=== PATIENT | male | born 1985 | race Hispanic/Latino ===

== ENCOUNTER 2024-12-02 22:09 | Emergency (ER) | payer MEDICAID ==
[~2024-12-02] VITALS: Ht 170.2 cm; Wt 85.3 kg
--- NOTE | 2024-12-03 01:24 | ERN ---
ED Note History of Present Illness Stated Complaint: COVID POSITIVE Chief Complaint: Cough Time Seen by MD: 22:30 Time Seen by Midlevel: 22:30 Dictation: The patient is a 39-year-old male with history of diabetes, hypertension, HIV who presents to the emergency department with complaints of cough, chills, body aches. Patient reports that he did a home test for COVID and was positive. Allergies: Coded Allergies: No Known Allergies (Unverified Allergy, Unknown, 12/02/24) Past Medical History Past Medical History: Diabetes-Type II, HIV, Hypertension Surgical History: None RN Note Reviewed/Agreed w/PFSH: Yes Review of System Dictation Constitutional: Negative for and weight loss positive for fever, chills Eyes: Negative for injury, pain,redness, and discharge ENT: Negative for injury,pain or swelling Cardiovascular: Negative for chest pain, palpitations, and edema Respiratory: Negative for shortness of breath, and wheezing, positive for cough Abdomen/GI: Negative for abdominal pain, nausea, vomiting, diarrhea, and constipation Back: Negative for injury and pain : Negative for injury, bleeding and discharge MS/Extremity: Negative for injury and deformity Skin: Negative for rash, and discoloration Neuro: Negative for headache, weakness, numbness, tingling, and seizure Psych: Negative for suicide ideation, homicidal ideation, and hallucinations Initial Vital Sign VS Vital Signs Date Time Temp Pulse Resp B/P (MAP) Pulse Ox O2 Delivery O2 Flow Rate FiO2 12/02/24 22:28 99.1 91 20 164/89 99 Room Air Physical Exam Dictation Vital Signs reviewed General Appearance: Alert, oriented x 3, no acute distress, well developed, nourished. Head and Face: non-traumatic. Eyes: PERRL, pink conjunctivas, eyelid no trauma, anterior chamber with arcus senilis. Ears: Pinnas intact and no signs of trauma or erythema ear canals clear and no discharge TM no erythema Nose: No discharge, no bleeding. Oropharynx: Mouth normal, tongue pink. pharynx clear,no erythema, tonsils no exudates, no abscesses noted, mucous membrane moist Neck: Supple, non-tender, no thyromegaly, no masses, no JVD, no bruits Breast:Deferred Chest:No tenderness, no crepitus, no paradoxical movement, no retractions Lungs:Clear, well-ventilated, symmetric, no rales, no wheezing, no rhonchi, no stridor, good breath sounds bilaterally Heart: Regular rate, regular rhythm, no murmur, no gallops Vascular: no peripheral edema, Abdomen: Soft, positive bowel sounds, nondistended, no guarding, nontender, no rebound, no masses no hepatomegaly, no splenomegaly, no Kuo's sign, no hernias. Rectal: Deferred Genital: Deferred Neurological: Normal speech, motor function intact, sensory function intact Musculoskeletal: Neck nontender, full range of motion, back nontender, full range of motion, Extremities: nontender, full range of motion Skin: Color pink, dry, no turgor, no rash, no lacerations, no abrasions, no contusions. Lymphatic: Deferred Results (Laboratory/Radiology) Laboratory/Radiology Laboratory Tests Test 12/03/24 00:59 Influenza Type A Antigen Negative For Type A Influenza Type B Antigen Positive For Type B SARS-CoV-2 Antigen (Rapid) POSITIVE FOR SARS AG Labs Reviewed?: Yes ED Course ED Course Orders Procedure Category Date Status Time Chest 1vw RAD 12/02/24 Taken 22:50 Covid19 (Sars Antigen LAB 12/03/24 Complete Rapid) 00:03 Influenza Type A & B, LAB 12/03/24 Complete Rapid 00:03 Oseltamivir Phosphate PHA 12/03/24 Verified (Tamiflu) 02:00 Vital Signs Date Time Temp Pulse Resp B/P (MAP) Pulse Ox O2 Delivery O2 Flow Rate FiO2 12/02/24 22:28 99.1 91 20 164/89 99 Room Air Medical Decision Making MDM The patient is a 39-year-old male with history of diabetes, hypertension, HIV who presents to the emergency department with complaints of cough, chills, body aches. Patient reports that he did a home test for COVID and was positive. Chest x-ray unremarkable. Serology positive for flu and COVID. Patient will be treated with Tamiflu and instructed to follow up with PCP. Patient currently nonlabored respirations, nontoxic appearance. Differential diagnosis: Influenza a, COVID-19 infection, pneumonia Need for hospitalization: Patient does not meet criteria for hospitalization. There are no social concerns with this patient. DX & DISP Disposition: Discharge Departure Impression: Primary Impression: Influenza B Additional Impression: COVID-19 Condition: Stable Scripts Oseltamivir Phosphate (Tamiflu) 75 Mg Cap 75 MG PO BID for 5 Days, #10 CAP Prov: NAMITA DHALIWAL 12/03/24 Additional Instructions: Please follow up with your PCP in 1-2 days. Please return if symptoms worsen. FOLLOW-UP WITH PRIMARY CARE PROVIDER IN 1 TO 2 DAYS. TAKE MEDICATIONS DIRECTED HERE IN THE EMERGENCY ROOM. OKAY TO CONTINUE HOME MEDICATIONS UNLESS OTHERWISE DISCUSSED DURING YOUR VISIT IN THE EMERGENCY ROOM TODAY. RETURN TO YOUR NEAREST EMERGENCY ROOM IF SYMPTOMS WORSEN OR IF THERE IS NO IMPROVEMENT. CALL 911 IF YOU NEED IMMEDIATE ASSISTANCE. TAKE TYLENOL OR MOTRIN [id number] NEEDED AND IF NO CONTRAINDICATIONS ARE PRESENT. INCREASE ORAL HYDRATION. A WOUND CULTURE OR URINE CULTURE WAS ORDERED HERE IN THE EMERGENCY ROOM DEPARTMENT PLEASE FOLLOW-UP WITH PRIMARY CARE PROVIDER AND ADVISE THEM TO GET REPEAT PORTS FROM OUR FACILITY. IF YOU HAD ANY MOMO WRAP/SPLINTS THAT WERE APPLIED HERE, PLEASE DO NOT REMOVE THEM UNTIL YOU SEE YOUR PRIMARY CARE OR SPECIALTY. Referrals: JAYCOB ARCHIBALD (PCP) Time of Disposition: 01:50 I have reviewed the case, and I agree with, Diagnosis and Plan NAMITA DHALIWAL Dec 03, 2024 01:24
[2024-12-03 01:33] LABS: INFLUENZA TYPE A Negative For Type A (NEGATIVE)
[2024-12-03 01:44] LABS: COVID19 (SARS ANTIGEN RAPID) POSITIVE FOR SARS AG (NEGATIVE); INFLUENZA TYPE B Positive For Type B (NEGATIVE)
[2024-12-03] MEDS ORDERED: OSEL75 PO (01:51)
[2024-12-03] MEDS: OSELTAMIVIR PHOSPHATE 75 MG CAP PO ONE (01:59)
[2024-12-03 02:04] VITALS: BP 152/82; PULSE 88; RESP 16; TEMP 98; O2SAT 98
--- NOTE | 2024-12-03 09:03 | HMCIMG ---
Exam Type: CHEST 1VW Clinical Information: cough Comparison: None Findings: The lungs are clear of infiltrates. The heart is normal in size. The bony and soft tissue structures of the chest are unremarkable. Impression: Clear lungs.
== END 2024-12-03 02:05 | disposition home or self-care (01) ==
LOC: EDH 22:09
DX: J10.1 Influenza due to other identified influenza virus with other respiratory manifestations (principal); U07.1 COVID-19; I10 Essential (primary) hypertension; E11.9 Type 2 diabetes mellitus without complications
CPT/HCPCS: 71045; 87426; 87804; 99284